=== PATIENT | female | born 1970 | race Two or more races ===

== ENCOUNTER 2019-03-02 13:26 | Emergency (ER) | payer MEDICAID ==
[~2019-03-02] VITALS: Ht 154.9 cm; Wt 82.6 kg
[2019-03-02 15:13] VITALS: BP 147/74
[2019-03-02] MEDS ORDERED: metFORMIN HYDROCHLORIDE 500 MG TAB PO ONE (15:30)
== END 2019-03-02 15:52 | disposition home or self-care (01) ==
LOC: ER 13:26
DX: E11.65 Type 2 diabetes mellitus with hyperglycemia (principal); E78.00 Pure hypercholesterolemia, unspecified
CPT/HCPCS: 82962